=== PATIENT | female | born 1990 | race Caucasian/White ===

== ENCOUNTER 2023-07-29 08:30 | Inpatient (IN) | payer SELFPAY ==
[~2023-07-29] VITALS: Ht 156 cm; Wt 78.0 kg
[2023-07-29] MEDS ORDERED: CITRIC ACID/SODIUM CITRATE 30 ML UDC PO SCH (09:45)
[2023-07-29] MEDS ORDERED: LACTATED RINGERS 1,000 ML IV SCH (09:45)
[2023-07-29 09:54] VITALS: BP 102/61; PULSE 76; RESP 17; TEMP 98.4
[2023-07-29 11:44] LABS: BASOPHILS % (AUTO) 0.5 % (0.0-2.0); EOSINOPHILS # (AUTO) 0.1 K/uL (0-0.4); EOSINOPHILS % (AUTO) 0.9 % (0.0-4.0); HEMATOCRIT 33.5 % (36-48); HEMOGLOBIN 11.2 g/dL (12.0-16.0); LYMPHOCYTES # (AUTO) 1.8 K/uL (2.5-16.5); LYMPHOCYTES % (AUTO) 22.6 % (20.5-51.1); MEAN CORPUSCULAR HEMOGLOBIN 29 pg (27-31); MEAN CORPUSCULAR HGB CONC 33 g/dL (33-37); MEAN CORPUSCULAR VOLUME 85.8 fL (80-94); MONOCYTES # (AUTO) 0.6 K/uL (0.8-1.0); MONOCYTES % (AUTO) 7.1 % (1.7-9.3); NEUTROPHILS # (AUTO) 5.5 K/uL (1.8-7.7); NEUTROPHILS % (AUTO) 68.9 % (42.2-75.2); PLATELET COUNT (AUTO) 248 K/uL (140-450); RED BLOOD CELL COUNT(AUTO) 3.91 MIL/uL (4.20-5.40); RED CELL DISTRIBUTION WIDTH 14.5 % (11.6-13.7); WHITE BLOOD COUNT (AUTO) 7.9 K/uL (4.8-10.8)
[2023-07-29 11:51] LABS: APPEARANCE,URINE CLEAR (CLEAR); BILIRUBIN,URINE NEGATIVE (NEGATIVE); BLOOD, URINE TRACE-I (NEGATIVE); COLOR,URINE YELLOW (YELLOW); LEUKOCYTE ESTERASE ,URINE NEGATIVE (NEGATIVE); NITRITE, URINE NEGATIVE (NEGATIVE); PROTEIN,URINE NEGATIVE (NEGATIVE); UGLUCOSE NEGATIVE (NEGATIVE); UROBILINOGEN,URINE 0.2 EU/dL (0.2 - 1)
[2023-07-29] MEDS ORDERED: ceFAZolin Sod. 2,000 MG in DEXTROSE 5% 100 ML IV ONE (12:00)
[2023-07-29 12:06] LABS: HIV RAPID SCREEN NON-REACTIVE (NON REACTIV)
[2023-07-29 12:07] LABS: INR 0.82 (0.8-1.2); PARTIAL THROMBOPLASTIN TIME 23.7 secs (22-35.6); PROTHROMBIN TIME 8.7 secs (10.8-13.4); RAPID PLASMA REAGIN NON-REACTIVE (Non Reactiv)
[2023-07-29] MEDS ORDERED: ceFAZolin 2,000 MG VIAL ONE (12:18)
[2023-07-29 12:21] LABS: ALBUMIN 2.7 g/dL (3.4-5.0); ANION GAP 12.2 (8-16); CALCIUM 8.4 mg/dL (8.5-10.1); CARBON DIOXIDE 26.2 mmol/L (21-32); CREATININE 0.5 mg/dL (0.6-1.3); POTASSIUM 4.4 mmol/L (3.5-5.1); TOTAL BILIRUBIN 0.6 mg/dL (0.0-1.0); TOTAL PROTEIN, SERUM 6.8 g/dL (6.4-8.2)
[2023-07-29] MEDS ORDERED: OXYTOCIN 20 UNITS in LACTATED RINGERS 1,000 ML IV SCH (12:40)
[2023-07-29] MEDS ORDERED: KETOROLAC 30 MG/ML VIAL IVP PRN (12:40)
[2023-07-29] MEDS ORDERED: TEMAZEPAM 15 MG CAP PO PRN (12:40)
[2023-07-29] MEDS ORDERED: SIMETHICONE 80 MG TAB.CHEW PO PRN (12:40)
[2023-07-29] MEDS ORDERED: METHYLERGONOVINE 0.2 MG/ML AMP IM PRN (12:40)
[2023-07-29] MEDS ORDERED: IBUPROFEN 800 MG TAB PO PRN (12:40)
[2023-07-29] MEDS ORDERED: oxyCODONE/APAP 5/325 MG 1 TAB TAB PO PRN ×2 (12:40)
[2023-07-29] MEDS ORDERED: KETOROLAC 30 MG/ML VIAL ONE (12:42)
[2023-07-29] MEDS ORDERED: DEXAMETHASONE 4 MG/ML VIAL ONE (12:42)
[2023-07-29] MEDS ORDERED: ACETAMINOPHEN 100 ML IV ONE (12:46)
[2023-07-29] MEDS ORDERED: MORPHINE PRES FREE 10 MG/10 ML AMP IV ONE (12:47)
[2023-07-29] MEDS ORDERED: diphenhydrAMINE 50 MG/ML VIAL IVP PRN (13:40)
[2023-07-29] MEDS ORDERED: NALOXONE 0.4 MG/ML VIAL IVP PRN ×3 (13:40)
[2023-07-29] MEDS ORDERED: ONDANSETRON 4 MG/2 ML VIAL IVP PRN (13:40)
[2023-07-29] MEDS ORDERED: NALBUPHINE 10 MG/ML AMP IVP PRN (13:40)
[2023-07-29] MEDS: OXYTOCIN 20 UNITS/LR PREMIX 1,000 ML IV ONE ×2 (14:15→14:45)
[2023-07-29] MEDS: KETOROLAC 30 MG/ML VIAL IM/IVP SCH (18:03)
[2023-07-29] MEDS ORDERED: ceFAZolin 1,000 MG VIAL ONE (20:47)
[2023-07-29] MEDS ORDERED: OXYTOCIN 20 UNITS/LR PREMIX 1,000 ML IV ONE (20:56)
[2023-07-29] MEDS ORDERED: DOCUSATE SOD/SENNA 50/8.6 MG 1 TAB PO SCH (21:00)
[2023-07-29] MEDS: ceFAZolin Sod. 2,000 MG in DEXTROSE 5% 100 ML IV SCH (21:07)
[2023-07-30] MEDS: KETOROLAC 30 MG/ML VIAL IM/IVP SCH ×2 (00:07→05:54)
[2023-07-30] MEDS ORDERED: ceFAZolin 2,000 MG VIAL ONE ×2 (04:19→13:10)
[2023-07-30] MEDS ORDERED: OXYTOCIN 20 UNITS/LR PREMIX 1,000 ML IV ONE (04:20)
[2023-07-30] MEDS: ceFAZolin Sod. 2,000 MG in DEXTROSE 5% 100 ML IV SCH ×2 (05:01→13:18)
[2023-07-30 07:54] LABS: BASOPHILS % (AUTO) 0.1 % (0.0-2.0); EOSINOPHILS % (AUTO) 0.2 % (0.0-4.0); HEMATOCRIT 24.7 % (36-48); HEMOGLOBIN 8.4 g/dL (12.0-16.0); LYMPHOCYTES # (AUTO) 1.7 K/uL (2.5-16.5); LYMPHOCYTES % (AUTO) 13.5 % (20.5-51.1); MEAN CORPUSCULAR HEMOGLOBIN 29 pg (27-31); MEAN CORPUSCULAR HGB CONC 34 g/dL (33-37); MEAN CORPUSCULAR VOLUME 84.1 fL (80-94); MONOCYTES # (AUTO) 0.9 K/uL (0.8-1.0); MONOCYTES % (AUTO) 7.2 % (1.7-9.3); NEUTROPHILS # (AUTO) 9.8 K/uL (1.8-7.7); PLATELET COUNT (AUTO) 210 K/uL (140-450); RED BLOOD CELL COUNT(AUTO) 2.94 MIL/uL (4.20-5.40); RED CELL DISTRIBUTION WIDTH 13.8 % (11.6-13.7); WHITE BLOOD COUNT (AUTO) 12.4 K/uL (4.8-10.8)
[2023-07-30] MEDS ORDERED: CAMERA MC ONE (19:22)
== END 2023-07-30 21:10 | disposition home or self-care (01) | DRG 785 ==
LOC: MLD 08:30 → MFCC 15:00
PROVIDERS: ADMIT Obstetrics & Gynecology; ATTEND Obstetrics & Gynecology
PROC: 0UB70ZZ Excision of Bilateral Fallopian Tubes, Open Approach (ICD-10-PCS; 2023-07-29)
PROC: 10D00Z1 Extraction of Products of Conception, Low, Open Approach (ICD-10-PCS; principal; 2023-07-29 12:30)
DX: O34.211 Maternal care for low transverse scar from previous cesarean delivery (principal); O69.81X0 Labor and delivery complicated by cord around neck, without compression, not applicable or unspecified; Z20.822 Contact with and (suspected) exposure to COVID-19; Z37.0 Single live birth; Z3A.38 38 weeks gestation of pregnancy; Z30.2 Encounter for sterilization
CPT/HCPCS: 36415; 80053; 81003; 85025; 85610; 85730; 86592; 86886; 86900; 86901; 87081; 88302; J0690; J1100; J1200; J1885; J2270; J2590; J7120